=== PATIENT | male | born 1970 | race African-American/Black ===

== ENCOUNTER 2016-06-02 16:55 | Emergency (ER) | payer SELFPAY ==
[2016-06-02 17:01] VITALS: BP 135/80; PULSE 83; TEMP 98.8; BMI 31.1
--- NOTE | 2016-06-02 18:21 | PDOC ---
History of Present Illness - General Chief Complaint: Eye Problem Stated Complaint: EYE PROBLEM Time Seen by Provider: 06/02/16 17:38 History Source: Patient - History of Present Illness Timing/Duration: other Associated Symptoms: denies: fever/chills Past History - Past Medical History Allergies/Adverse Reactions: Allergies Allergy/AdvReac Type Severity Reaction Status Date / Time Penicillins Allergy Verified 06/02/16 17:01 Home Medications: Ambulatory Orders Cetirizine HCl [Zyrtec -] 10 mg PO DAILY #7 tablet 06/02/16 Erythromycin Base [Erythromycin] 1 gm OP ASDIR 06/02/16 Olopatadine HCl [Patanol] 5 ml OP BID #1 bottle 06/02/16 Asthma: No Cancer: No Cardiac Disorders: No Diabetes: No HTN: No Other medical history: denies - Surgical History Abdominal Surgery: No - Immunization History Immunization Up to Date: Yes - Psycho/Social/Smoking Cessation Hx Anxiety: No Suicidal Ideation: No Smoking History: Never smoked Hx Alcohol Use: No Drug/Substance Use Hx: No Substance Use Type: None Review of Systems - Review of Systems Constitutional: No: Chills, Fever HEENTM: Yes: Tearing. No: Eye Pain, Blurred Vision, Ear Pain, Nose Congestion, Throat Pain Respiratory: No: Cough *Physical Exam - Vital Signs Last Vital Signs Temp Pulse Resp BP Pulse Ox 98.8 F 83 18 135/80 100 06/02/16 16:58 06/02/16 16:58 06/02/16 16:58 06/02/16 16:58 06/02/16 16:58 - Physical Exam General Appearance: Yes: Appropriately Dressed. No: Apparent Distress HEENT: positive: Normal Voice, Other (b/l conjunctival erythema w/ chemosis and significant periorbital edema b/l, no periorbial erythema, incr warmth or ttp to suggest cellulitis). negative: Scleral Icterus (R), Scleral Icterus (L) Neck: positive: Supple Respiratory/Chest: negative: Respiratory Distress Integumentary: positive: Dry Neurologic: positive: Fully Oriented, Alert, Normal Mood/Affect Medical Decision Making - Medical Decision Making 06/02/16 18:16 46-year-old, no significant history, here with bilateral conjunctival erythema, w/ itching and tearing that started 3 days ago. 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 As per patient, was seen in urgent care center 2 days ago and started on erythromycin ointment and states since using ointment has noticed swelling of his eyelids. Has not used erythromycin ointment in the past. No discharge, photophobia or visual changes. Does not wear any contact lens. No URI symptoms or fever or chills. Patient stable in ED with bilateral periorbital edema w/ conjunc erythema and chemosis, strongly suggestive of an allergic component. Possibly allergic conjunctivitis or possibly viral/bacterial conjunctivitis w/ ?superimposed allergy to erythromycin. Dc with instructions to stop erythromycin ointment and to apply cool compresses and take Patanol and Zyrtec as prescribed. Reasons to return discussed with patient 06/02/16 18:22 *DC/Admit/Observation/Transfer Diagnosis at time of Disposition: Allergic conjunctivitis Qualifiers: Laterality: bilateral Qualified Code(s): H10.13 - Acute atopic conjunctivitis, bilateral - Discharge Dispostion Disposition: HOME Condition at time of disposition: Good - Prescriptions Prescriptions: Olopatadine HCl [Patanol] 5 ml OP BID #1 bottle Cetirizine HCl [Zyrtec -] 10 mg PO DAILY #7 tablet - Patient Instructions Printed Discharge Instructions: Conjunctivitis Additional Instructions: You appear to have an eye allergy at this time. Refrain from rubbing eyes because rubbing can worsen symptoms. Apply cool compresses several times a day to help reduce eyelid and swelling around your eyes Use Patanol and zyrtec as directed. If symptoms don't improve and or worsen over the next several days, return to ED - Post Discharge Activity Work/School Note: Back to Work
== END 2016-06-02 18:18 | disposition home or self-care (01) ==
LOC: JERFT 16:55
DX: H10.33 Unspecified acute conjunctivitis, bilateral (principal)
CPT/HCPCS: 99281-25

== ENCOUNTER 2016-06-10 19:15 | Emergency (ER) | payer SELFPAY ==
[2016-06-10 19:22] VITALS: BP 147/94; PULSE 81; TEMP 98.2; BMI 31.1
--- NOTE | 2016-06-10 20:07 | PDOC ---
History of Present Illness - General Chief Complaint: Eye Problem Stated Complaint: EVALUATION Time Seen by Provider: 06/10/16 20:06 History Source: Patient Exam Limitations: No Limitations - History of Present Illness Initial Comments: CHIEF COMPLAINT: 46 y/o afebrile male with no significant PMH c/o red eyes and penile discharge. HISTORY OF PRESENT ILLNESS: The patient was diagnosed with conjunctivitis and has been taking the medication for 5 days. He states eyes are getting better but are still red. He also states that today he had 1 episode of a small amount of "dribbling" of urine from his penis. He denies f/c, n/v/d, changes in vision/hearing, hematuria, dysuria, penile lesions/rashes. He would like to be checked and treated for STDs. Vital signs on arrival are within normal limits. REVIEW OF SYSTEMS: GENERAL/CONSTITUTIONAL: No fever/chills. No weakness. No weight change. HEAD, EYES, EARS, NOSE AND THROAT: No change in vision. No ear pain or discharge. No sore throat. +red, itchy eyes with green discharge. GENITOURINARY: +1 episode of urinary dribbling. No dysuria or frequency. MUSCULOSKELETAL: No joint or muscle swelling or pain. No neck or back pain. SKIN: No rash or easy bruising. NEUROLOGIC: No headache, vertigo, loss of consciousness, or loss of sensation. PHYSICAL EXAM: GENERAL: The patient is awake, alert, and fully oriented, in no acute distress. HEAD: Normal with no signs of trauma. ENT: Pupils equal, round and reactive to light, extraocular movements intact, sclera anicteric, conjunctiva injected b/l. Green discharge seen at the medial cathus of right eye. ABDOMEN: Soft, non-distended, non-tender even to deep palpation, no hepatomegaly or splenomegaly, no masses. EXTREMITIES: Normal range of motion, no edema. NEUROLOGICAL: Normal speech, normal gait. CN II-XII grossly intact. PSYCH: Normal mood, normal affect. SKIN: Warm, dry, normal turgor, no rashes or lesions noted. Past History - Past Medical History Allergies/Adverse Reactions: Allergies Allergy/AdvReac Type Severity Reaction Status Date / Time Penicillins Allergy Verified 06/10/16 19:20 Home Medications: Ambulatory Orders Cetirizine HCl [Zyrtec -] 10 mg PO DAILY #7 tablet 06/02/16 Erythromycin Base [Erythromycin] 1 gm OP ASDIR 06/02/16 Olopatadine HCl [Patanol] 5 ml OP BID #1 bottle 06/02/16 Erythromycin 0.5% Eye Ointment [Erythromycin 0.5% Eye Ointment -] 1 applic OU Q4H #1 tube 06/10/16 Asthma: No Cancer: No Cardiac Disorders: No Diabetes: No HTN: No - Surgical History Abdominal Surgery: No - Immunization History Immunization Up to Date: Yes - Psycho/Social/Smoking Cessation Hx Anxiety: No Suicidal Ideation: No Smoking History: Never smoked Have you smoked in the past 12 months: No Information on smoking cessation initiated: No Hx Alcohol Use: No Drug/Substance Use Hx: No Substance Use Type: None *Physical Exam - Vital Signs Last Vital Signs Temp Pulse Resp BP Pulse Ox 98.2 F 81 18 147/94 100 06/10/16 19:20 06/10/16 19:20 06/10/16 19:20 06/10/16 19:20 06/10/16 19:20 Medical Decision Making - Medical Decision Making A/P: 46 y/o afebrile male with conjunctivitis and 1 episode of dribbling urine from penis today. Plan is as follows: 1. UA/culture 2. GC/chlamydia 3. IM ceftriaxone 4. PO azithro. The patient was told to discontinue the patanol drop. Will send rx for erythro ointment. Instructed him to refrain from sexual intercourse for 1 week and f/u with referred Urologist if symptoms continue. UA negative for UTI Will treat empirically for GC/chlamydia. The patient verbalizes understanding of all instructions, has no further questions and is awaiting discharge. *DC/Admit/Observation/Transfer Diagnosis at time of Disposition: Screen for STD (sexually transmitted disease) Conjunctivitis Qualifiers: Conjunctivitis type: unspecified Laterality: bilateral Qualified Code(s): H10.9 - Unspecified conjunctivitis - Discharge Dispostion Condition at time of disposition: Good - Prescriptions Prescriptions: Erythromycin 0.5% Eye Ointment [Erythromycin 0.5% Eye Ointment -] 1 applic OU Q4H #1 tube - Referrals Referrals: Umair Pierson MD [Staff Physician] - 1 week - Patient Instructions Printed Discharge Instructions: DI for Conjunctivitis Additional Instructions: Discharge Instructions: -Stop using Patanol eye drops -Use new eye drops sent to your pharmacy -Apply warm compresses to your eye multiple times per day -You were treated with Ceftriaxone and Azithromycin for empiric coverage of Gonorrhea and chlamydia; no further treatment is required -Refrain from sexual activity for 1 week -Return to the ER with any worsening or concerning symptoms
[2016-06-10 21:46] LABS: URINE APPEARANCE CLEAR; URINE BILIRUBIN NEGATIVE (NEGATIVE); URINE BLOOD NEGATIVE (NEGATIVE); URINE COLOR YELLOW; URINE GLUCOSE (UA) NEGATIVE (NEGATIVE); URINE KETONE NEGATIVE (NEGATIVE); URINE LEUK ESTERASE NEGATIVE (NEGATIVE); URINE NITRITE NEGATIVE (NEGATIVE); URINE PROTEIN NEGATIVE (NEGATIVE); URINE UROBILINOGEN NEGATIVE E.U./dl (0.2-1.0)
[2016-06-10] MEDS ORDERED: AZITHROMYCIN 1 GM PACKET ONE (22:12)
[2016-06-10] MEDS: AZITHROMYCIN 1 GM PACKET PO ONE (22:19)
== END 2016-06-10 22:41 | disposition home or self-care (01) ==
LOC: JERFT 19:15
DX: H10.33 Unspecified acute conjunctivitis, bilateral (principal); R36.9 Urethral discharge, unspecified; Z11.3 Encounter for screening for infections with a predominantly sexual mode of transmission
CPT/HCPCS: 36415; 81003; 87086; 87491; 87591; 99281-25

== ENCOUNTER 2023-02-09 19:53 | Emergency (ER) | payer SELFPAY ==
[2023-02-09 20:02] VITALS: RESP 18; TEMP 98.2; BMI 28.6
[2023-02-09 21:48] VITALS: BP 153/111; PULSE 78
[2023-02-09] MEDS ORDERED: KETOROLAC TROMETHAMINE 30 MG/1 ML VIAL IM ONE (21:58)
[2023-02-09] MEDS ORDERED: ACETAMINOPHEN 500 MG TABLET (FP) PO ONE (21:58)
[2023-02-09] MEDS ORDERED: ACETAMINOPHEN 500 MG TABLET (FP) ONE (22:01)
[2023-02-09] MEDS ORDERED: KETOROLAC TROMETHAMINE 30 MG/1 ML VIAL ONE (22:01)
== END 2023-02-09 22:15 | disposition home or self-care (01) ==
LOC: JERFT 19:53
PROC: 3E0233Z Introduction of Anti-inflammatory into Muscle, Percutaneous Approach (ICD-10-PCS; principal; 2023-02-09)
DX: M54.41 Lumbago with sciatica, right side (principal)
CPT/HCPCS: 99284-25